=== PATIENT | female | born 1935 | race Caucasian/White ===

== ENCOUNTER 2016-07-02 17:15 | Emergency (ER) | payer OTHER ==
[~2016-07-02] VITALS: Ht 157.5 cm; Wt 49.8 kg
[~2016-07-02 17:15] MED LIST: ASPI81TA28 PO; GLC500 PO; GLIP10TA10 PO; LEVO100T7 PO; SIMV40TA2 PO
[2016-07-02 17:28] VITALS: TEMP 36.8; Ht 157.5 cm; Wt 49.8 kg
[2016-07-02 18:45] LABS: URINE APPEARANCE CLOUDY (CLEAR); URINE BILIRUBIN NEG (NEG); URINE COLOR YELLOW; URINE EPITHELIAL CELL AUTO >30 /lpf (0-5); URINE NITRITE NEG (NEG); URINE SPECIFIC GRAVITY 1.016 (1.000-1.030); UROBILINOGEN NEG (NEG)
[2016-07-02 18:51] LABS: MANUAL MICROSCOPIC REQUIRED? NO; REVIEW REQ? NO
[2016-07-02] MEDS ORDERED: FLUCONAZOLE 100 MG TAB PO STA (19:05)
[2016-07-02] MEDS ORDERED: CEPHALEXIN MONOHYDRATE 250 MG CAP PO ONE (19:15)
[2016-07-02] MEDS ORDERED: CEPH500C PO (19:27)
[2016-07-02 19:51] VITALS: BP 146/70; PULSE 76; O2SAT 99
--- NOTE | 2016-07-03 01:06 | EMERGENCY ROOM VISIT NOTE ---
History Report prepared by Leiaibeloisa: Sadie Toney Under the Supervision of: Dr. Jorge Luis Miranda M.D. First contact with patient: 17:39 Chief Complaint: VAGINAL DISCHARGE Stated Complaint: FOUND LUMP IN VAGINAL AREA History of Present Illness The patient is a 80 year old female who presents to the Emergency Room with complaints of persistent vaginal discomfort over the past few days. The patient notes that she felt two small lumps in the vaginal area and has also had some burning with urination. Her granddaughter looked at the patient's vagina and saw a white splotchy areas surrounding her vagina and was able to see the two small lumps. They did not appear to be red. The patient has not been sexually active in 15 years. Denies fever, vomiting, abdominal pain, vaginal discharge, vaginal bleeding, or other complaints. She does not follow with a career orientation teacher. Source of History: patient, family Onset: a few days ago Position: other (vagina) Timing: other (persistent) Associated Symptoms: No abdominal pain, No fevers, No vomiting Note: Other symptoms: lumps and white splotchiness around vagina Review of Systems See HPI for pertinent positives & negatives. A total of 10 systems reviewed and were otherwise negative. Past Medical & Surgical Medical Problems: (1) Asthma (2) Cataract (3) Dermatophytosis (4) Diabetes mellitus type 2 (5) DM (diabetes mellitus) (6) Hyperlipemia (7) Hypothyroidism (8) Localized, primary osteoarthritis of the lower leg Family History Diabetes mellitus Diabetes mellitus Heart disease Hypertension Social History Smoking Status: Former Smoker Alcohol Use: none Marital Status: Housing Status: lives with significant other Occupation Status: retired Current/Historical Medications Scheduled Aspirin (Aspirin Ec), 81 MG PO DAILY Cephalexin Monohydrate (Keflex), 500 MG PO TID Glipizide (Glipizide), 10 MG PO BIDM Levothyroxine Sodium (Levothyroxine Sodium), 100 MCG PO DAILY Metformin HCl (Metformin HCl), 500 MG PO BIDM Simvastatin (Zocor), 40 MG PO HS Allergies Coded Allergies: Celecoxib (Verified Allergy, Intermediate, nausea, vomiting, rash, 07/02/16 ) Homatropine (Verified Allergy, Unknown, LOW BLOOD PRESSURE AMD SLOW HEART RATE, 07/02/16) Hydrocodone (Verified Allergy, Unknown, LOW BLOOD PRESSURE AMD SLOW HEART RATE, 07/02/16) Rofecoxib (Verified Allergy, Unknown, NAUSEA, VOMITING, RASH, 07/02/16) Physical Exam Vital Signs Date Time Temp Pulse Resp B/P Pulse Ox O2 Delivery O2 Flow Rate FiO2 07/02/16 19:51 76 20 146/70 99 07/02/16 17:28 36.8 93 18 149/69 97 Room Air Physical Exam Constitutional: Vital signs reviewed. Eyes: Pupils are equal round reactive to light. Conjunctiva are noninjected. ENT: Pharynx is clear without erythema or exudate. Mucous membranes are moist. Neck supple without meningeal signs. Respiratory: Clear to auscultation bilaterally. Breath sounds are equal bilaterally. Cardiovascular: Regular rate and rhythm. No rubs or gallops. GI: Soft, nondistended and nontender. Bowel sounds are present. : Speculum exam - edema to the vulva with slight erosion. No vesicles. No discharge. Unable to tolerate further exam secondary to pain. Musculoskeletal: No peripheral edema. Integumentary: No cyanosis. Neurological: The patient is awake and alert. No focal deficits. Psychiatric: Normal affect. Medical Decision & Procedures Laboratory Results Test 07/02/16 18:06 Urine Color YELLOW Urine Appearance CLOUDY (CLEAR) Urine pH 5.0 (4.5-7.5) Urine Specific [place] 1.016 (1.000-1.030) Urine Protein NEG (NEG) Urine Glucose (UA) 2+ (NEG) Urine Ketones NEG (NEG) Urine Occult Blood TRACE (NEG) Urine Nitrite NEG (NEG) Urine Bilirubin NEG (NEG) Urine Urobilinogen NEG (NEG) Urine Leukocyte Esterase LARGE (NEG) Urine WBC (Auto) >30 /hpf (0-5) Urine RBC (Auto) 0-4 /hpf (0-4) Urine Hyaline Casts (Auto) 10-30 /lpf (0-5) Urine Epithelial Cells (Auto) >30 /lpf (0-5) Urine Bacteria (Auto) 2+ (NEG) Laboratory results as reviewed by me. Medications Administered Medications (Trade) Dose Ordered Sig/Srinath Route Start Time Stop Time Status Last Admin Dose Admin Fluconazole (Diflucan Tab) 150 mg NOW STAT PO 07/02/16 19:05 07/02/16 19:08 DC 07/02/16 19:05 150 MG Cephalexin Monohydrate (Keflex Cap) 500 mg NOW ONCE PO 07/02/16 19:15 07/02/16 19:16 DC 07/02/16 19:15 500 MG ED Course 1739: The patient was evaluated in room A3. A complete history and physical exam was performed. 1852: I performed a speculum exam. See findings in physical exam. 1901: I discussed the case with Dr. De La Cruz, Gynecology. She recommended treating with Diflucan x2 and Monistat and Desitin cream. 1904: Ordered Diflucan tab 150 mg PO, Keflex Cap 500 mg PO. 1923: I talked to the patient and her about test results. They agreed with the plan. The patient will be discharged home. Medical Decision This is an 80-year-old female who presents with vaginal discharge. Differential diagnosis includes yeast infection, vaginitis, UTI. I did perform a limited focused review of portions of the patient's old chart on the electronic medical record. The patient has had no recent pertinent visits to this hospital. I did evaluate the patient as noted above. I did perform a pelvic exam as noted above. She has generalized edema and erythema to the vulva and introitus. There are no vesicles. She appears to have a vulvovaginitis. I was unable to perform a speculum exam warm and well exam due to discomfort. A genital culture was obtained. A urinalysis was also obtained. I did discuss the case with Dr. De La Cruz of gynecology who recommended treating patient with antifungals. I did treat the patient with Diflucan 150 mg orally. She will also use Monistat at home. She was also instructed to use Desitin cream as a barrier for comfort. She is also given a prescription for Keflex for a UTI. She was advised follow up with gynecology. Consults Time Called: 1899 Consulting Physician: Dr. De La Cruz, Gynecology Returned Call: 1901 I discussed the case with her. She recommended treating with Diflucan x2 and Monistat and Desitin cream. Impression Primary Impression: Vulvovaginitis Additional Impression: UTI (urinary tract infection) Scribe Attestation The scribe's documentation has been prepared under my direct and personally reviewed by me in its entirety. I confirm that the note above accurately reflects all work, treatment, procedures, and medical decision making performed by me. Departure Information Dispostion Home / Self-Care Prescriptions Cephalexin Monohydrate (Keflex) 500 Mg Cap 500 MG PO TID, #21 CAP Prov: Jorge Luis Miranda M.D. 07/02/16 Referrals Bree Rojas D.O. (PCP) Patient Instructions My [facility], UTI Additional Instructions You have been examined and treated today on an emergency basis only. This is not a substitute for, or an effort to provide, complete comprehensive medical care. It is impossible to recognize and treat all injuries or illnesses in a single emergency department visit. It is therefore important that you follow up closely with your physician or career orientation teacher in 2 days. Call as soon as possible for an appointment. Return for worsening symptoms or if you develop fever, vomiting, abdominal pain or any other concerning symptoms. In addition to the antifungal medication you were given today use [id number] antifungal cream. Problem Qualifiers
== END 2016-07-02 19:54 | disposition home or self-care (01) ==
LOC: C.EDB 17:17 → C.EDA 19:54
DX: N76.0 Acute vaginitis (principal); N39.0 Urinary tract infection, site not specified; J45.909 Unspecified asthma, uncomplicated; E11.9 Type 2 diabetes mellitus without complications; E78.5 Hyperlipidemia, unspecified; E03.9 Hypothyroidism, unspecified; Z87.891 Personal history of nicotine dependence

== ENCOUNTER 2016-09-22 11:43 | Emergency (ER) | payer OTHER ==
[~2016-09-22] VITALS: Ht 127 cm; Wt 49.3 kg
[~2016-09-22 11:43] MED LIST changes: +CEPH500C PO
[2016-09-22 11:45] VITALS: TEMP 36.6; Ht 127 cm; Wt 49.3 kg
[2016-09-22] MEDS ORDERED: CEFTRIAXONE SOD INJ 1 GM ADDVIAL IV STA (11:56)
[2016-09-22] MEDS ORDERED: FLUCONAZOLE 50 MG TAB PO ONE (12:00)
[2016-09-22] MEDS ORDERED: OPTIRAY 320 IV PRN (12:15)
[2016-09-22] MEDS ORDERED: [UNRECOGNIZED DRUG - CODE] TOP (12:20)
[2016-09-22 13:02] LABS: HEMATOCRIT 37.3 % (37-47); MEAN CELL VOLUME 87.8 fL (80-100); MEAN CORPUSCULAR HEMOGLOBIN 30.8 pg (25-34); MEAN CORPUSCULAR HGB CONC 35.1 g/dl (32-36); PLATELET COUNT 186 K/uL (130-400); RED BLOOD COUNT 4.25 M/uL (4.2-5.4); WHITE BLOOD COUNT 7.21 K/uL (4.8-10.8)
[2016-09-22 13:18] LABS: BUN/CREATININE RATIO 11.5 (10-20); CALCIUM 8.8 mg/dl (8.5-10.1); CREATININE 0.7 mg/dl (0.60-1.20)
[2016-09-22 13:20] LABS: BASO % 0.3 %; BASO ABS # 0.02 K/uL (0-0.2); COMPLETE YES; EOS % 5.3 %; IG% 0.1 %; LYMPH % 38.1 %; LYMPH ABS # 2.75 K/uL (1.2-3.4); MONO % 7.4 %; NEUT % 48.8 %
[2016-09-22 14:12] VITALS: BP 138/62; PULSE 72; O2SAT 95
--- NOTE | 2016-09-22 14:15 | DIAGNOSTIC IMAGING REPORT ---
CT pelvis PELVIS W/IV CONT ONLY (CT) CLINICAL HISTORY: Vaginal cellulitis infection TECHNIQUE: Transaxial acquisition. Multi axial reformatted images COMPARISON STUDY: None FINDINGS: Transaxial images confirm the bowel pattern to be nonobstructive. Uterus is not enlarged but shows evidence for myometrial calcification. There is no evidence for ovarian enlargement. There is no significant free fluid within pelvic cul-de-sac. Bladder is midline. There is moderate circumferential thickening of the vaginal canal. A well-defined drainable abscess or collection Is not appreciated. IMPRESSION: 1. Circumferential wall thickening and/or edematous change of the vaginal canal and associated full. 2. This is most consistent with that of a nonspecific cellulitis. 3. No evidence for abscess or collection. 4. With the patient's symptoms have resolved, direct visualization is recommended to exclude any possibility of an underlying neoplastic process. 5. Study is otherwise negative. Electronically signed by: Selvin Velez M.D. 09/22/2016 2:13 PM Dictated Date/Time: 09/22/2016 2:02 PM
--- NOTE | 2016-09-22 14:23 | EMERGENCY ROOM VISIT NOTE ---
History Report prepared by Kareem: Crow Horne Under the Supervision of: Dr. Tevin Brady M.D. First contact with patient: 11:54 Chief Complaint: INFECTION Stated Complaint: INFECTION DOWN BELOW History of Present Illness The patient is an 80 year old female who presents to the Emergency Room with complaints of a recurrent vaginal infection. The patient states that she was diagnosed with a yeast infection in late June. She finished her prescription and initially had resolution of the infection. She did not follow up with Obstetrics & Gynecology. She notes itchiness and burning with urination and vaginal pain for the last week. She also has a rash surrounding her vagina. The patient denies fevers, chills, or vomiting. She follows up with the [facility]. Records indicate that the patient was seen here in June. She had cultures that grew out Group B Strep. She was started on Diflucan and Keflex. Source of History: patient Onset: 4-5 weeks ago Position: other (vaginal) Quality: other (infection) Timing: other (recurrent) Associated Symptoms: + rash, + urinary symptoms (burning), No chills, No fevers, No vomiting Review of Systems See HPI for pertinent positives & negatives. A total of 10 systems reviewed and were otherwise negative. Past Medical & Surgical Medical Problems: (1) Asthma (2) Cataract (3) Dermatophytosis (4) Diabetes mellitus type 2 (5) DM (diabetes mellitus) (6) Hyperlipemia (7) Hypothyroidism (8) Localized, primary osteoarthritis of the lower leg Family History Diabetes mellitus Diabetes mellitus Heart disease Hypertension Social History Smoking Status: Former Smoker Alcohol Use: none Marital Status: Housing Status: lives with significant other Occupation Status: retired Current/Historical Medications Scheduled Aspirin (Aspirin Ec), 81 MG PO DAILY Benzocaine-Resorcinol Vaginal (Vagicaine 20-3 %), 1 APPLN TOP BID Cephalexin Monohydrate (Keflex), 500 MG PO QID Fluconazole (Diflucan), 150 MG PO DIRECTED Glipizide (Glipizide), 10 MG PO BIDM Levothyroxine Sodium (Levothyroxine Sodium), 100 MCG PO DAILY Metformin HCl (Metformin HCl), 500 MG PO BIDM Simvastatin (Zocor), 40 MG PO HS Allergies Coded Allergies: Celecoxib (Verified Allergy, Intermediate, nausea, vomiting, rash, 09/22/16 ) Homatropine (Verified Allergy, Unknown, LOW BLOOD PRESSURE AMD SLOW HEART RATE, 09/22/16) Hydrocodone (Verified Allergy, Unknown, LOW BLOOD PRESSURE AMD SLOW HEART RATE, 09/22/16) Rofecoxib (Verified Allergy, Unknown, NAUSEA, VOMITING, RASH, 09/22/16) Physical Exam Vital Signs Date Time Temp Pulse Resp B/P Pulse Ox O2 Delivery O2 Flow Rate FiO2 09/22/16 14:12 72 17 138/62 95 Room Air 09/22/16 11:45 36.6 88 18 135/70 99 Room Air Physical Exam GENERAL: Patient is in no acute distress. HEENT: No acute trauma, normocephalic atraumatic, mucous membranes moist, no nasal congestion, no scleral icterus. NECK: No stridor, no adenopathy, no meningismus, trachea is midline. LUNGS: Clear to auscultation bilaterally, no wheeze, no rhonchi, breath sounds equal. HEART: Without murmurs gallops or rubs, regular rate and rhythm. ABDOMEN: Soft, nontender, bowel sounds positive, no hernias, no peritonitis. EXTREMITIES: No cyanosis or edema, full range of motion of all the joints without pain or difficulty, no signs for acute trauma. NEUROLOGIC: Oriented x 3, no acute motor or sensory deficits, no focal weakness. SKIN: No rash, no jaundice, no diaphoresis. VAGINAL: Diffuse erythema of external genitalia and surrounding soft tissues, there is some erythema extending into creases of the groin, no obvious discharge externally, area is sore to touch. Speculum exam was not performed secondary to discomfort. Medical Decision & Procedures ER Provider Diagnostic Interpretation: CT results as stated below per my review and radiologist interpretation: CT pelvis PELVIS W/IV CONT ONLY (CT) CLINICAL HISTORY: Vaginal cellulitis infection TECHNIQUE: Transaxial acquisition. Multi axial reformatted images COMPARISON STUDY: None FINDINGS: Transaxial images confirm the bowel pattern to be nonobstructive. Uterus is not enlarged but shows evidence for myometrial calcification. There is no evidence for ovarian enlargement. There is no significant free fluid within pelvic cul-de-sac. Bladder is midline. There is moderate circumferential thickening of the vaginal canal. A well-defined drainable abscess or collection Is not appreciated. IMPRESSION: 1. Circumferential wall thickening and/or edematous change of the vaginal canal and associated full. 2. This is most consistent with that of a nonspecific cellulitis. 3. No evidence for abscess or collection. 4. With the patient's symptoms have resolved, direct visualization is recommended to exclude any possibility of an underlying neoplastic process. 5. Study is otherwise negative. Electronically signed by: Selvin Velez M.D. 09/22/2016 2:13 PM Dictated Date/Time: 09/22/2016 2:02 PM Laboratory Results 09/22/16 12:25 Red Blood Count 4.25, Mean Corpuscular Volume 87.8, Mean Corpuscular Hemoglobin 30.8, Mean Corpuscular Hemoglobin Concent 35.1, Mean Platelet Volume 10.0, Neutrophils (%) (Auto) 48.8, Lymphocytes (%) (Auto) 38.1, Monocytes (%) (Auto) 7.4, Eosinophils (%) (Auto) 5.3, Basophils (%) (Auto) 0.3, Neutrophils # (Auto) 3.52, Lymphocytes # (Auto) 2.75, Monocytes # (Auto) 0.53, Eosinophils # (Auto) 0.38, Basophils # (Auto) 0.02 09/22/16 12:25 Test 09/22/16 12:25 White Blood Count 7.21 K/uL (4.8-10.8) Red Blood Count 4.25 M/uL (4.2-5.4) Hemoglobin 13.1 g/dL (12.0-16.0) Hematocrit 37.3 % (37-47) Mean Corpuscular Volume 87.8 fL (80-100) Mean Corpuscular Hemoglobin 30.8 pg (25-34) Mean Corpuscular Hemoglobin Concent 35.1 g/dl (32-36) Platelet Count 186 K/uL (130-400) Mean Platelet Volume 10.0 fL (7.4-10.4) Neutrophils (%) (Auto) 48.8 % Lymphocytes (%) (Auto) 38.1 % Monocytes (%) (Auto) 7.4 % Eosinophils (%) (Auto) 5.3 % Basophils (%) (Auto) 0.3 % Neutrophils # (Auto) 3.52 K/uL (1.4-6.5) Lymphocytes # (Auto) 2.75 K/uL (1.2-3.4) Monocytes # (Auto) 0.53 K/uL (0.11-0.59) Eosinophils # (Auto) 0.38 K/uL (0-0.5) Basophils # (Auto) 0.02 K/uL (0-0.2) RDW Standard Deviation 41.9 fL (36.4-46.3) RDW Coefficient of Variation 13.1 % (11.5-14.5) Immature Granulocyte % (Auto) 0.1 % Immature Granulocyte # (Auto) 0.01 K/uL (0.00-0.02) Anion Gap 6.0 mmol/L (3-11) Est Creatinine Clear Calc Drug Dose 32.5 ml/min Estimated GFR () 93.5 Estimated GFR (Non- 80.7 BUN/Creatinine Ratio 11.5 (10-20) Calcium Level 8.8 mg/dl (8.5-10.1) Laboratory results reviewed by me. Medications Administered Medications (Trade) Dose Ordered Sig/Srinath Route Start Time Stop Time Status Last Admin Dose Admin Ceftriaxone Sodium (Rocephin Inj) 1 gm NOW STAT IV 09/22/16 11:56 09/22/16 12:16 DC 09/22/16 12:27 1 GM Fluconazole (Diflucan Tab) 150 mg NOW ONCE PO 09/22/16 12:00 09/22/16 12:16 DC 09/22/16 12:27 150 MG ED Course 1153: The patient was evaluated in room B12b. A complete history and physical exam was performed. 1156: Rocephin 1 gm IV. 1200: Diflucan 150 mg PO. 1427: Discussed the case with Dr. Gottlieb, Obstetrics & Gynecology. The patient should follow up. 1433: Reevaluated the patient. Discussed results and discharge instructions: She verbalized understanding and agreement. The patient is ready for discharge. Medical Decision Differential diagnosis includes vaginal / pelvic cellulitis or abscess, necrotizing fasciitis, UTI, vaginal yeast infection. There is no leukocytosis or concerning anemia. No significant electrolyte abnormality or kidney failure. Pelvis CT showed vaginal cellulitis, no necrotizing fasciitis, no abscess. Urine sample here was eventually discarded as it was lost and apparently had spilled in the tube system. The patient was having difficulty providing a repeat sample. The patient received IV ceftriaxone, she was given IV saline. She received oral Diflucan. The patient does not want to stay in the hospital. She's not toxic or febrile. Her vaginal culture from late June showed group B strep so I do think treatment with antibiotics is indicated. The patient is going to be on Keflex 4 times daily for 10 days. I will also prescribe every third day Diflucan dosing for 3 days. I did speak with the on-call COOLING ROOM ATTENDANT doctor. The patient will be followed in the office. The patient will return here for worsening symptoms. I did not do a speculum exam as the patient was too uncomfortable. A speculum exam was attempted with her last ER visit and was unsuccessful. Consults Time Called: 1420 Consulting Physician: Dr. Gottlieb, Obstetrics & Gynecology. Returned Call: [phone]: Discussed the case with Dr. Gottlieb, Obstetrics & Gynecology. The patient should follow up. Impression Primary Impression: Cellulitis Scribe Attestation The scribe's documentation has been prepared under my direction and personally reviewed by me in its entirety. I confirm that the note above accurately reflects all work, treatment, procedures, and medical decision making performed by me. Departure Information Dispostion Home / Self-Care Prescriptions Fluconazole (DIFLUCAN) 150 Mg Tab 150 MG PO DIRECTED, #3 TAB take 1 tab every 3 days--next dose in 3 days (you were given a dose today 09/22/16) Prov: Tevin Brady M.D. 09/22/16 Cephalexin Monohydrate (Keflex) 500 Mg Cap 500 MG PO QID, #40 CAP Prov: Tevin Brady M.D. 09/22/16 Referrals No Doctor, Assigned (PCP) Forms HOME CARE DOCUMENTATION FORM, IMPORTANT VISIT INFORMATION Patient Instructions My [facility] Additional Instructions diflucan 1 tab every 3 days for 3 more days use keflex 4x per day for 10 days call licensed mortgage loan officer and set an appt for later this week return for fever or worsening symptoms or if not improving Problem Qualifiers Primary Impression: Cellulitis
[2016-09-22] MEDS ORDERED: FLUC150T PO (14:41)
[2016-09-22] MEDS ORDERED: CEPH500C PO (14:41)
== END 2016-09-22 15:08 | disposition home or self-care (01) ==
LOC: C.EDB 11:44
DX: N76.2 Acute vulvitis (principal); J45.909 Unspecified asthma, uncomplicated; E11.9 Type 2 diabetes mellitus without complications; E78.5 Hyperlipidemia, unspecified; E03.9 Hypothyroidism, unspecified; Z83.3 Family history of diabetes mellitus; Z82.49 Family history of ischemic heart disease and other diseases of the circulatory system; Z87.891 Personal history of nicotine dependence; Z79.82 Long term (current) use of aspirin; Z79.899 Other long term (current) drug therapy

== ENCOUNTER → 2017-04-16 | Outpatient (CLI) | payer OTHER ==
[~2017-04-16] MED LIST changes: -CEPH500C PO; +[UNRECOGNIZED DRUG - CODE] TOP
== END | disposition home or self-care (01) ==
LOC: C.PATHSPEC 17:23
PROVIDERS: ATTEND Obstetrics & Gynecology
DX: N90.9 Noninflammatory disorder of vulva and perineum, unspecified (principal); R87.620 Atypical squamous cells of undetermined significance on cytologic smear of vagina (ASC-US)

== ENCOUNTER → 2017-05-05 | Outpatient (CLI) | payer OTHER ==
[2017-05-05 16:35] LABS: HEMATOCRIT 38.8 % (37-47); MEAN CELL VOLUME 90.9 fL (80-100); MEAN CORPUSCULAR HEMOGLOBIN 30.2 pg (25-34); MEAN CORPUSCULAR HGB CONC 33.2 g/dl (32-36); MEAN PLATELET VOLUME 10.1 fL (7.4-10.4); PLATELET COUNT 207 K/uL (130-400); RED BLOOD COUNT 4.27 M/uL (4.2-5.4); WHITE BLOOD COUNT 7.01 K/uL (4.8-10.8)
--- NOTE | 2017-05-05 16:47 | DIAGNOSTIC IMAGING REPORT ---
CHEST 2 VIEWS ROUTINE CLINICAL HISTORY: 81 years-old Female presenting with C51.9 Z01.818, preoperative assessment. TECHNIQUE: PA and lateral views of the chest were obtained. COMPARISON: 06/28/2015. FINDINGS: Atherosclerosis of aortic arch. Cardiac silhouette normal in size. Lungs and pleural spaces clear. Degenerative changes of the thoracic spine. Upper abdomen normal. IMPRESSION: 1. No acute cardiopulmonary disease. Electronically signed by: Jadiel Franco M.D. 05/05/2017 4:46 PM Dictated Date/Time: 05/05/2017 4:45 PM
[2017-05-05 16:56] LABS: ALT/SGPT 16 U/L (12-78); BLOOD UREA NITROGEN 11 mg/dl (7-18); CALCIUM 8.8 mg/dl (8.5-10.1); CARBON DIOXIDE 25 mmol/L (21-32); CHLORIDE 107 mmol/L (98-107); CREATININE 0.81 mg/dl (0.60-1.20); GLUCOSE 242 mg/dl (70-99); POTASSIUM 4.1 mmol/L (3.5-5.1); SODIUM 138 mmol/L (136-145)
[2017-05-05 17:01] LABS: ALB/GLOB RATIO 0.9 (0.9-2); ALKALINE PHOSPHATASE 52 U/L (45-117); AST/SGOT 11 U/L (15-37)
== END | disposition home or self-care (01) ==
LOC: C.RAD 15:32
PROVIDERS: ATTEND Obstetrics & Gynecology Gynecologic Oncology
DX: C51.9 Malignant neoplasm of vulva, unspecified (principal); Z01.818 Encounter for other preprocedural examination

== ENCOUNTER → 2017-08-24 | Outpatient (CLI) | payer OTHER ==
[2017-08-24 14:38] LABS: HEMATOCRIT 37.5 % (37-47); HEMOGLOBIN 12.6 g/dL (12.0-16.0); MEAN CELL VOLUME 87.6 fL (80-100); MEAN CORPUSCULAR HEMOGLOBIN 29.4 pg (25-34); MEAN CORPUSCULAR HGB CONC 33.6 g/dl (32-36); MEAN PLATELET VOLUME 9.9 fL (7.4-10.4); PLATELET COUNT 217 K/uL (130-400); RED CELL DISTRIBUTION WIDTH CV 13.1 % (11.5-14.5); RED CELL DISTRIBUTION WIDTH SD 41.9 fL (36.4-46.3); WHITE BLOOD COUNT 8.85 K/uL (4.8-10.8)
[2017-08-24 15:13] LABS: ALBUMIN 3.2 gm/dl (3.4-5.0); ALT/SGPT 17 U/L (12-78); BLOOD UREA NITROGEN 11 mg/dl (7-18); CARBON DIOXIDE 25 mmol/L (21-32); CREATININE 0.79 mg/dl (0.60-1.20); GLUCOSE 160 mg/dl (70-99); POTASSIUM 4.2 mmol/L (3.5-5.1); SODIUM 137 mmol/L (136-145)
[2017-08-24 15:16] LABS: ALKALINE PHOSPHATASE 59 U/L (45-117); AST/SGOT 13 U/L (15-37); TOTAL PROTEIN 7.2 gm/dl (6.4-8.2)
== END | disposition home or self-care (01) ==
LOC: C.LAB 13:49
PROVIDERS: ATTEND Obstetrics & Gynecology Gynecologic Oncology
DX: Z01.818 Encounter for other preprocedural examination (principal); N90.89 Other specified noninflammatory disorders of vulva and perineum

== ENCOUNTER 2019-10-07 17:26 | Inpatient (IN) ==
[2019-10-07] MEDS ORDERED: MoRPHine SULFATE 2 MG/ML CARP IV PRN ×2 (18:03→22:42)
[2019-10-07] MEDS ORDERED: ONDANSETRON INJ 2 MG/ML 2 ML VIAL IV STA (18:03)
--- NOTE | 2019-10-07 18:13 | XRay Report ---
XR chest 1V portable CLINICAL HISTORY: Chest Pain COMPARISON STUDY: Chest radiograph September 06, 2018. FINDINGS: Lung volumes are normal. Lungs are clear. There is no pneumothorax or pleural effusion. Car diac size is normal. Mediastinal contours are normal. There is no evidence for pulmonary edema. IMPRESSION: No acute cardiopulmonary findings. ACT 112: Negative or not required by law. Electronically signed by: Joseph Vogt M.D. 10/07/2019 6:12 PM
[2019-10-07 18:21] LABS: Basophils # (auto) 0.02 K/uL (0-0.2); Basophils % (auto) 0.3 %; Eosinophils # (auto) 0.02 K/uL (0-0.5); Eosinophils % (auto) 0.3 %; Hemoglobin 11.9 g/dL (12.0-16.0); Immature Granulocytes # (auto) 0.01 K/uL (0.00-0.02); Immature Granulocytes % (auto) 0.2 %; Lymphocytes # (auto) 2.02 K/uL (1.2-3.4); Lymphocytes % (auto) 34.8 %; Mean Corpuscular Hemoglobin 30.8 pg (25-34); Mean Corpuscular Volume 90.7 fL (80-100); Mean Platelet Volume 9.9 fL (7.4-10.4); Monocytes % (auto) 6.9 %; Neutrophils # (auto) 3.33 K/uL (1.4-6.5); Neutrophils % (auto) 57.5 %; Platelet Count 217 K/uL (130-400); RDW Coefficient of Variation 13.8 % (11.5-14.5); RDW Standard Deviation 45.5 fL (36.4-46.3); Red Blood Count 3.86 M/uL (4.2-5.4)
[2019-10-07 18:31] LABS: Partial Thromboplastin Ratio 0.8; Partial Thromboplastin Time 23.3 Seconds (21.0-31.0)
[2019-10-07 18:46] LABS: Alanine Aminotransferase 18 U/L (12-78); Albumin Level 3.3 gm/dl (3.4-5.0); Aspartate Aminotransferase 14 U/L (15-37); BUN Creatinine Ratio 14.5 (10-20); Blood Urea Nitrogen 11 mg/dl (7-18); Calcium 9.5 mg/dl (8.5-10.1); Carbon Dioxide 24 mmol/L (21-32); Chloride 107 mmol/L (98-107); Est GFR (African American) 80.3; Est GFR (Non-African American) 69.3; Glucose 177 mg/dl (70-99); Lipase 69 U/L (73-393); Sodium 139 mmol/L (136-145)
[2019-10-07 18:51] LABS: Albumin Globulin Ratio 0.8 (0.9-2); Alkaline Phosphatase 46 U/L (45-117); Bilirubin,Total 0.3 mg/dl (0.2-1); Globulin 4.1 gm/dl (2.5-4.0); Total Protein 7.4 gm/dl (6.4-8.2); Troponin I < 0.015 ng/ml (0-0.045)
--- NOTE | 2019-10-07 19:35 | CT Scan Report ---
CT OF THE ABDOMEN AND PELVIS WITHOUT CONTRAST CLINICAL HISTORY: Mid abdominal pain and vomiting. COMPARISON STUDY: CT of the abdomen and pelvis November 26, 2017. TECHNIQUE: Axial images of the abdomen and pelvis were obtained without IV contrast. Images were revi ewed in the axial, sagittal, and coronal planes. Automated exposure control was utilized for the arnulfo dy. A dose lowering technique was utilized adhering to the principles of ALARA. FINDINGS: Small right middle lobe nodules are unchanged and CT of November 26, 2017. These are benign. Ev aluation of the abdomen and pelvis is suboptimal on this unenhanced examination. The liver, spleen, a drenal glands are unremarkable. 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 There is no biliary or pancreatic ductal dilatation. Pancreatic glandular atrophy is again noted. There is no evidence for a bowel obstruction. Note is made of a stool-filled diverticul um of the third portion the duodenum. The appendix is not visualized. Caliber of small and large alanna l are normal. No abdominal or pelvic lymphadenopathy is present. The left inguinal lymph node shown o n CT of November 26, 2017 is no longer identified. There is pelvic and left groin infiltration. No suspic ious osseous lesions are present. There is no hydronephrosis. No urinary calculi are identified. IMPRESSION: 1. No acute process within the abdomen or pelvis although exam mildly compromised given the lack of I V contrast. No bowel obstruction. 2. Mild left groin and pelvic infiltration which likely reflects postradiation change. No abdominal o r pelvic lymphadenopathy. ACT 112: Negative or not required by law. Electronically signed by: Joseph Vogt M.D. 10/07/2019 7:33 PM
--- NOTE | 2019-10-07 21:01 | Emergency Department Note ---
Impression & Plan Substernal chest pain, Abdominal pain, acute, epigastric, Abnormal ECG ED Provider Note NAME: HUMZA SELF AGE: 83 SEX: F ARRIVES VIA: Walk-In INFORMANT: [Patient] ED PROVIDER(S): Deangelo Pollard MD CHIEF COMPLAINT: Chest pain and upper abdominal pain PLAN: Disposition: Admitted Condition: [Good] MEDICAL DECISION MAKING: The patient presented with 2 days of waxing and waning upper abdominal and substernal chest pain. Her ECG showed inferior T wave inversions and some subtle lateral ST depression. Her CBC was rather unremarkable. Chemistry panel was negative. Troponin negative. The patient's serum lactate was negative as well. Urinalysis did not show any clear evidence of infection. Chest x-ray did not reveal any acute process. Her CT scan of the abdomen pelvis was also nega tive for acute process. This was done without IV or oral contrast given her complaints of nausea and vomiting. The patient was treated with morphine and Zofran and was feeling better with this. Symptoms were much improved. Given the chest symptoms, abdominal symptoms, and abnormal ECG I did recommend further management in the hospital. The patient was initially reluctant to stay however she agreed. I did consult with the [facility] service. The patient was evaluated and admitted for further work-up. Triage Nursing notes reviewed and agree them. Vital Signs: reviewed and remarkable for [no significant abnormalities] Differential diagnosis: Cardiac ischemia, aortic dissection, pulmonary embolism, pneumothorax, pneumonia, pericarditis, myocarditis, esophageal rupture, GERD, cholecystitis, pancreatitis, musculoskeletal, as well as other pathologies. ER treatment provided: IV morphine IV Zofran Diagnostics interpreted by me: ECG: Rate: 86 Rhythm:Normal sinus [place]:Normal QRS:Normal ST segements:No elevation. Subtle lateral ST depression. Inferior T wave inversions. Other:No PACs or PVCs Cardiac Monitoring: Cardiac monitoring ordered by me: The patient was placed on continuous cardiac monitoring and observed. It revealed a normal sinus rhythm at 75 beats per minute without ectopy or evidence of dysrhythmia. Laboratory studies: [See below] an unremarkable CBC and chemistry panel. Troponin negative. LFTs and lipase negative. Imaging studies: Chest x-ray. Findings: A chest x-ray was performed and revealed no pneumothorax, effusion, infiltrate, pulmonary edema, free air under the diaphragm, or wide mediastinum. Impression: No acute disease. CT scan of the abdomen pelvis was performed. Negative for acute process. I refer you to the EMR for further details. Consultation(s): Dr. Randle of the [facility] service. HPI: The patient is a 83 year old female who presents to the Emergency Room with complaints of substernal chest pain and epigastric abdominal pain. This started 2 days ago and is waxing and waning. Nonradiating. The patient also notes the following associated symptoms, nausea and vomiting. The patient has found no relieving factors. Current pain is rated as 8/10. Pt denies LOC, headache, fevers, chills, diaphoresis, visual changes, neck pain, breathing difficulties, back pain, melena, hematochezia, urinary symptoms, numbness, weakness, lymphadenopathy, rash, or other complaints. ROS: See above HPI for pertinent positives & negatives. A total of [10] systems reviewed and were otherwise negative. PAST MEDICAL HISTORY:[See Below] asthma, UTI, ovarian cancer PAST SURGICAL HISTORY:[See Below] FAMILY HISTORY:[See Below] SOCIAL HISTORY:[See Below] HOME MEDICATIONS:[See Below] ALLERGIES:[See Below] VITALS:[See Below] PHYSICAL EXAMINATION: GENERAL: Awake, alert, very uncomfortable-appearing, in no distress HENT: Normocephalic, atraumatic. Oropharynx unremarkable. EYES: Normal conjunctiva. Sclera non-icteric. NECK: Inspection normal. Non-tender. Supple. No nuchal rigidity. FROM. No ma sses. RESPIRATORY: Clear to auscultation. No wheezes. No rales. Normal respiratory effort. CARDIAC: Normal rate. Normal rhythm. No murmurs. No rubs. Extremities warm and well perfused. Pulses equal. No JVD. GI: Soft, non-distended. Epigastric tenderness to palpation. No rebound or guarding. No masses. RECTAL: Deferred. MUSCULOSKELETAL: Atraumatic. Chest examination reveals no tenderness. The back is symmetrical on inspection without obvious abnormality. There is no CVA tenderness to palpation. No joint edema. LOWER EXTREMITIES: Calves are equal size bilaterally and non-tender. No edema. No discoloration. NEURO: Normal sensorium. No sensory or motor deficits noted. SKIN: No rash or jaundice noted. ED COURSE: [Critical Care:] [None] Deangelo Pollard MD Past Med/Surg History Social History Preferred Language: Peruvian Beliefs That Will Affect Care: None Feels Safe at Home: Yes Smoking Status: Former smoker Allergies Allergies Allergy/AdvReac Type Severity Reaction Status Date / Time celecoxib Allergy Intermediate nausea, Verified 10/07/19 19:55 vomiting, rash homatropine Allergy Unknown LOW BLOOD Verified 10/07/19 19:55 PRESSURE AMD SLOW HEART RATE hydrocodone Allergy Unknown LOW BLOOD Verified 10/07/19 19:55 PRESSURE AMD SLOW HEART RATE rofecoxib Allergy Unknown NAUSEA, Verified 10/07/19 19:55 VOMITING, RASH Home Meds Home Medications Medication Instructions Recorded Confirmed aspirin [Aspirin Low Dose] 81 mg PO QPM 06/25/18 10/07/19 glipizide 10 mg PO BID 06/25/18 10/07/19 levothyroxine 100 mcg PO QAM 06/25/18 10/07/19 metformin 500 mg PO BIDM 06/25/18 10/07/19 simvastatin 40 mg PO HS 06/25/18 10/07/19 acetaminophen [Tylenol Extra 500 mg PO HS 07/08/19 10/07/19 Strength] Results & Data (ED) Vital Signs Vital Signs - 24 hr 10/07/19 17:27 10/07/19 18:00 10/07/19 18:22 Temperature 36.4 C L Temperature Source Oral Pulse Rate 89 81 86 Pulse Rate from SpO2 Sensor 79 83 Respiratory Rate 19 15 16 Blood Pressure 181/71 H 145/59 H Blood Pressure Mean 107 111 Pulse Oximetry 99 99 98 Sepsis Recent Fever Within 48 Hours No Sepsis Action Taken by Nursing No Action Required 10/07/19 18:30 10/07/19 18:31 10/07/19 18:40 Temperature Temperature Source Pulse Rate 85 78 84 Pulse Rate from SpO2 Sensor 85 80 84 Respiratory Rate 19 21 20 Blood Pressure 140/65 Blood Pressure Mean 90 Pulse Oximetry 98 98 99 Sepsis Recent Fever Within 48 Hours Sepsis Action Taken by Nursing 10/07/19 18:50 10/07/19 19:00 10/07/19 19:14 Temperature Temperature Source Pulse Rate 78 81 88 Pulse Rate from SpO2 Sensor 78 78 Respiratory Rate 15 22 17 Blood Pressure 132/58 L Blood Pressure Mean 105 Pulse Oximetry 96 97 Sepsis Recent Fever Within 48 Hours Sepsis Action Taken by Nursing 10/07/19 19:30 10/07/19 19:31 10/07/19 20:00 Temperature Temperature Source Pulse Rate 74 84 71 Pulse Rate from SpO2 Sensor Respiratory Rate 20 18 21 Blood Pressure 146/87 H 132/67 Blood Pressure Mean 117 104 Pulse Oximetry Sepsis Recent Fever Within 48 Hours Sepsis Action Taken by Nursing 10/07/19 20:01 10/07/19 20:30 10/07/19 20:31 Temperature Temperature Source Pulse Rate 71 74 74 Pulse Rate from SpO2 Sensor Respiratory Rate 18 12 18 Blood Pressure 120/41 L Blood Pressure Mean 58 Pulse Oximetry Sepsis Recent Fever Within 48 Hours Sepsis Action Taken by Nursing Laboratory Data Result diagrams: 10/07/19 18:00 10/07/19 18:00 Lab Results 10/07/19 10/07/19 10/07/19 Range/Units 18:00 18:00 18:00 WBC 5.80 (4.8-10.8) K/uL RBC 3.86 L (4.2-5.4) M/uL Hgb 11.9 L (12.0-16.0) g/dL Hct 35.0 L (37-47) % MCV 90.7 (80-100) fL MCH 30.8 (25-34) pg MCHC 34.0 (32-36) g/dL RDW Std Deviation 45.5 (36.4-46.3) fL RDW Coeff of Darcie 13.8 (11.5-14.5) % Plt Count 217 (130-400) K/uL MPV 9.9 (7.4-10.4) fL Immature Gran % (Auto) 0.2 % Neut % (Auto) 57.5 % Lymph % (Auto) 34.8 % Burt % (Auto) 6.9 % Eos % (Auto) 0.3 % Baso % (Auto) 0.3 % Immature Gran # (Auto) 0.01 (0.00-0.02) K/uL Neut # (Auto) 3.33 (1.4-6.5) K/uL Lymph # (Auto) 2.02 (1.2-3.4) K/uL Burt # (Auto) 0.40 (0.11-0.59) K/uL Eos # (Auto) 0.02 (0-0.5) K/uL Baso # (Auto) 0.02 (0-0.2) K/uL PT 11.0 (9.0-12.0) Seconds INR 1.0 (0.9-1.1) APTT 23.3 (21.0-31.0) Seconds PTT Ratio 0.8 Sodium 139 (136-145) mmol/L Potassium 4.0 (3.5-5.1) mmol/L Chloride 107 (98-107) mmol/L Carbon Dioxide 24 (21-32) mmol/L Anion Gap 8.0 (3-11) BUN 11 (7-18) mg/dl Creatinine 0.78 (0.6-1.2) mg/dl Est Cr Clr Drug Dosing Not Reportable Est GFR ( Amer) 80.3 Est GFR (Non-Af Amer) 69.3 BUN/Creatinine Ratio 14.5 (10-20) Glucose 177 H (70-99) mg/dl Lactate (0.4-2.0) mmol/L Calcium 9.5 (8.5-10.1) mg/dl Total Bilirubin 0.3 (0.2-1) mg/dl AST 14 L (15-37) U/L ALT 18 (12-78) U/L Alkaline Phosphatase 46 (45-117) U/L Troponin I < 0.015 (0-0.045) ng/ml Total Protein 7.4 (6.4-8.2) gm/dl Albumin 3.3 L (3.4-5.0) gm/dl Globulin 4.1 H (2.5-4.0) gm/dl Albumin/Globulin Ratio 0.8 L (0.9-2) Lipase 69 L (73-393) U/L 10/07/19 Range/Units 20:08 WBC (4.8-10.8) K/uL RBC (4.2-5.4) M/uL Hgb (12.0-16.0) g/dL Hct (37-47) % MCV (80-100) fL MCH (25-34) pg MCHC (32-36) g/dL RDW Std Deviation (36.4-46.3) fL RDW Coeff of Darcie (11.5-14.5) % Plt Count (130-400) K/uL MPV (7.4-10.4) fL Immature Gran % (Auto) % Neut % (Auto) % Lymph % (Auto) % Burt % (Auto) % Eos % (Auto) % Baso % (Auto) % Immature Gran # (Auto) (0.00-0.02) K/uL Neut # (Auto) (1.4-6.5) K/uL Lymph # (Auto) (1.2-3.4) K/uL Burt # (Auto) (0.11-0.59) K/uL Eos # (Auto) (0-0.5) K/uL Baso # (Auto) (0-0.2) K/uL PT (9.0-12.0) Seconds INR (0.9-1.1) APTT (21.0-31.0) Seconds PTT Ratio Sodium (136-145) mmol/L Potassium (3.5-5.1) mmol/L Chloride (98-107) mmol/L Carbon Dioxide (21-32) mmol/L Anion Gap (3-11) BUN (7-18) mg/dl Creatinine (0.6-1.2) mg/dl Est Cr Clr Drug Dosing Est GFR ( Amer) Est GFR (Non-Af Amer) BUN/Creatinine Ratio (10-20) Glucose (70-99) mg/dl Lactate 1.3 (0.4-2.0) mmol/L Calcium (8.5-10.1) mg/dl Total Bilirubin (0.2-1) mg/dl AST (15-37) U/L ALT (12-78) U/L Alkaline Phosphatase (45-117) U/L Troponin I (0-0.045) ng/ml Total Protein (6.4-8.2) gm/dl Albumin (3.4-5.0) gm/dl Globulin (2.5-4.0) gm/dl Albumin/Globulin Ratio (0.9-2) Lipase (73-393) U/L Administered Medications Morphine Sulfate (Morphine Sulfate) 2 mg IV Q15M PRN PRN Reason: Pain Stop: 10/21/19 18:02 Last Admin: 10/07/19 18:33 Dose: 2 mg Documented by: [id number] Discontinued Medications Ondansetron HCl (Zofran) 4 mg IV NOW STA Stop: 10/07/19 18:04 Last Admin: 10/07/19 18:33 Dose: 4 mg Documented by: [id number] Discharge Plan Visit Data Chief Complaint: Chest Pain Stated Complaint: chest pains, stomach pains, cant vomit ED Provider: Deangelo Pollard Discharge Problem: Substernal chest pain, Abdominal pain, acute, epigastric, Abnormal ECG Forms Stand Alone Forms: [facility] Prescriptions Prescriptions: No Action metformin 500 mg tablet 500 mg PO BIDM RF: 0 glipizide 10 mg tablet 10 mg PO BID RF: 0 aspirin [Aspirin Low Dose] 81 mg Tablet,Delayed Release (Dr/Ec) 81 mg PO QPM RF: 0 simvastatin 40 mg tablet 40 mg PO HS RF: 0 levothyroxine 100 mcg tablet 100 mcg PO QAM RF: 0 acetaminophen [Tylenol Extra Strength] 500 mg Tablet 500 mg PO HS RF: 0
[2019-10-07] MEDS ORDERED: ACETAMINOPHEN 325 MG TAB PO PRN (22:42)
[2019-10-07] MEDS ORDERED: NITROGLYCERIN SL 0.4 MG/TAB TAB SL PRN (22:42)
[2019-10-07] MEDS ORDERED: ONDANSETRON INJ 2 MG/ML 2 ML VIAL IV PRN (22:42)
[2019-10-07] MEDS ORDERED: SODIUM CHLORIDE 0.9% 1000ML 1,000 ML IV SCH (22:42)
[2019-10-07] MEDS ORDERED: DEXTROSE 50% 50 ML SYRINGE IV PRN (23:00)
[2019-10-07] MEDS ORDERED: GLUCOSE 10 TABS/TUBE PO PRN (23:00)
[2019-10-07] MEDS ORDERED: GLUCOSE 40% GEL 15 GM TUBE PO PRN (23:00)
[2019-10-07] MEDS ORDERED: GLUCAGON FOR INJ 1 MG VIAL SQ PRN (23:00)
[2019-10-07] MEDS ORDERED: CARBOHYDRATES FOR HYPOGLYCEMIA PO PRN (23:00)
[2019-10-07] MEDS: FAMOTIDINE 20 MG in SYRINGE 3 ML IV SCH (23:46)
--- NOTE | 2019-10-07 23:49 | History and Physical Report ---
DATE OF ADMISSION: 10/07/2019 CHIEF COMPLAINT: Chest pain and abdominal pain. HISTORY OF PRESENT ILLNESS: This is an 83-year-old female with past medical history significant for type 2 diabetes, hypothyroidism, hyperlipidemia, diabetic peripheral neuropathy, who lives with her and son, presents with chest pain and upper abdomen pain. The patient says she is having the symptoms for last 2 days, pressure-like feeling, also has some nausea. No shortness of breath, no cough, no fever, no chills. Appetite is okay. Feeling weak and tired, she wants to sleep all the time. Because of the ongoing symptoms, she came to the ER. Currently resting comfortably and hemodynamically stable. She says she ambulates okay. Appetite is okay. No diarrhea or constipation. Normal bladder movements. No swelling in the legs. No rash. No headache, no blurred visions, no earache, no runny nose, no sore throat, no difficulty swallowing. ALLERGIES: BLACKWOOD INHIBITORS, HYCODAN. PAST MEDICAL HISTORY: As mentioned above. PAST SURGICAL HISTORY: Left heart catheterization, repair of inguinal hernia. MEDICATIONS: The patient is on glipizide 10 mg p.o. b.i.d., metformin 500 mg p.o. b.i.d., simvastatin 40 mg p.o. at bedtime, levothyroxine 100 mcg p.o. daily, Tylenol with Codeine daily p.r.n., albuterol nebulization every 4 hours p.r.n., MiraLax p.r.n., aspirin 81 mg p.o. daily. FAMILY HISTORY: Significant for sister had breast cancer, mother has diabetes, father has diabetes. SOCIAL HISTORY: . No smoking, no alcohol, no drug use. REVIEW OF SYSTEMS: As per HPI. Rest of review of systems negative. PHYSICAL EXAMINATION: GENERAL: The patient is old and frail, not in acute distress. VITAL SIGNS: Temperature 36.4, pulse 74, respiratory rate 18, blood pressure 120/41, oxygen 97%. HEENT: No pallor, no icterus. NECK: No JVD, no neck masses. Supple. CARDIOVASCULAR: S1, S2 heard, regular rate and rhythm, no murmur, no gallop. RESPIRATORY SYSTEM: Normal AP diameter. No accessory muscle use. No wheezing, no crackles. ABDOMEN: Soft, bowel sounds present, nontender. No distention. CENTRAL NERVOUS SYSTEM: Cranial nerves II-XII grossly intact. Nonfocal. EXTREMITIES: No edema, no erythema. LABORATORY DATA: WBC 5.8, hemoglobin 11.9, hematocrit 35, platelets 217, PT 11, INR 1, APTT 23.3. Sodium 139, potassium 4, chloride 107, bicarbonate 24, BUN 11, creatinine 0.7, serum glucose 177. Lactate 1.3, calcium 9.5, total bilirubin 0.3, AST 14, ALT 18, alkaline phosphatase 46. Troponin I less than 0.015. Lipase 69. IMAGING DATA: Chest x-ray, no acute cardiopulmonary findings. CT of abdomen and pelvis, no acute process within the abdomen or pelvis, no bowel obstruction. Mild left groin and pelvic infiltration, which likely reflects post-radiation change. No abdominal or pelvic lymphadenopathy. EKG: Normal sinus rhythm with sinus arrhythmia. ST depression in the lateral leads. No old EKG to compare. ASSESSMENT AND PLAN: This is an 83-year-old female who presents with lower chest pain and abdominal pain. 1. Chest pain present for last 2 days. Initial workup was negative. Rule out acute coronary syndrome. Risk factor of diabetes, hyperlipidemia, and age. Will continue home aspirin. Serial cardiac enzymes, echocardiogram, n.p.o. after midnight and consult cardiology in a.m. for further recommendations. Follow echocardiogram. 2. Abdominal pain. CT of the abdomen and pelvis unremarkable except for mild left groin and pelvic infiltration.If no improvement consult GI. Will be placed on IV Pepcid b.i.d. for now. 3. Diabetes. Hold home glipizide and metformin. Placed on Lantus 5 units daily and insulin sliding scale. Currently, patient is n.p.o. after midnight. 4. Hypothyroidism, continue Synthroid. 5. Hyperlipidemia. Continue statin. Follow fasting lipid profile. 6. Deep vein thrombosis prophylaxis, sequential compression devices. 7. Disposition: Admit to med/surg tele. Level 1 full code. PT and OT prior to discharge. Social service to help with discharge planning. [facility]
[2019-10-08 05:32] LABS: Basophils # (auto) 0.03 K/uL (0-0.2); Basophils % (auto) 0.6 %; Eosinophils # (auto) 0.04 K/uL (0-0.5); Eosinophils % (auto) 0.8 %; Hematocrit (blood only) 33.6 % (37-47); Hemoglobin 11.2 g/dL (12.0-16.0); Immature Granulocytes # (auto) 0.01 K/uL (0.00-0.02); Immature Granulocytes % (auto) 0.2 %; Lymphocytes # (auto) 2.17 K/uL (1.2-3.4); Lymphocytes % (auto) 45.2 %; Mean Corpuscular Hemoglobin 30.1 pg (25-34); Mean Corpuscular Hgb Conc 33.3 g/dL (32-36); Mean Corpuscular Volume 90.3 fL (80-100); Mean Platelet Volume 9.5 fL (7.4-10.4); Monocytes # (auto) 0.51 K/uL (0.11-0.59); Monocytes % (auto) 10.6 %; Neutrophils # (auto) 2.04 K/uL (1.4-6.5); Neutrophils % (auto) 42.6 %; Platelet Count 190 K/uL (130-400); RDW Coefficient of Variation 13.6 % (11.5-14.5); RDW Standard Deviation 45.5 fL (36.4-46.3); Red Blood Count 3.72 M/uL (4.2-5.4)
[2019-10-08 05:49] LABS: Blood Urea Nitrogen 9 mg/dl (7-18); Calcium 8.9 mg/dl (8.5-10.1); Carbon Dioxide 26 mmol/L (21-32); Chloride 110 mmol/L (98-107); Est GFR (African American) 93.4; Est GFR (Non-African American) 80.6; Glucose 104 mg/dl (70-99); Magnesium 1.8 mg/dl (1.8-2.4); Potassium 4.3 mmol/L (3.5-5.1); Sodium 142 mmol/L (136-145)
[2019-10-08 05:54] LABS: Chol HDL Ratio 2; Cholesterol 151 mg/dl (0-200); HDL Cholesterol 73 mg/dl; LDL Cholesterol Calculated 64 mg/dl; Triglycerides 71 mg/dl (0-150); Troponin I < 0.015 ng/ml (0-0.045); VLDL Cholesterol 14 mg/dl
[2019-10-08] MEDS ORDERED: LEVOTHYROXINE SODIUM 100 MCG TABLET PO SCH (06:30)
[2019-10-08 07:16] LABS: Estimated Average Glucose 160 mg/dl; Hemoglobin A1C 7.2 % (4.5-5.6)
--- NOTE | 2019-10-08 07:53 | Electrocardiogram Report ---
Test Reason : Blood Pressure : / mmHG Vent. Rate : 086 BPM Atrial Rate : 086 BPM P-R Int : 122 ms QRS Dur : 076 ms QT Int : 384 ms P-R-T Axes : 092 065 -74 degrees QTc Int : 459 ms Normal sinus rhythm with sinus arrhythmia Abnormal ECG When compared with ECG of 29-NOV-2017 18:25, ST now depressed in Lateral leads Confirmed by Mike Herrera ([id number]) on 10/08/2019 7:53:31 AM Referred By: REFERRED SELF Confirmed By:Mike Herrera
[2019-10-08] MEDS: FAMOTIDINE 20 MG in SYRINGE 3 ML IV SCH (08:26)
[2019-10-08] MEDS ORDERED: INSULIN GLARGINE SOLOSTAR 100 UNITS/ML 3 ML PEN SC SCH (09:00)
[2019-10-08] MEDS: INSULIN ASPART 100 UNITS/ML 3 ML PEN SC SCH ×2 (09:25→11:43)
--- NOTE | 2019-10-08 09:33 | Hospitalist Progress Note ---
Date of Service October 08, 2019 Assessment & Plan (1) Substernal chest pain: Admitted with substernal chest pain for the 2 days prior to admission Has EKG changes consistent with lateral ischemia Serial troponins have been negative Echo showed: Normal with borderline concentric LV hypertrophy, EF is 60 to 65% with normal wall motion, mild MR, mild to moderate TR and RV systolic pressure is mildly elevated at 30 to 40 mmHg. Awaiting cardiology evaluation Patient remains free of symptoms as of this morning (2) Abnormal ECG: Lateral ischemia evidence by team worsening lateral leads (3) Abdominal pain, acute, epigastric: CT of the abdomen and pelvis remain unremarkable and no mention about ovaries Has history of ovarian cancer No more abdominal pain (4) Hyperlipemia: Continue current medications DVT prophylaxis SCDs Possible discharge today after cardiology evaluation if not we will put her on pharmacologic DVT prophylaxis Admission and Anticipated Discharge Date Admission Date: October 07, 2019 Subjective 10/08/2019 Patient was seen and examined in medical telemetry unit She is an 83-year-old female with multiple comorbid conditions including diabetes, hypothyroidism, hyperlipidemia and diabetic complications was admitted yesterday with chest pain/upper abdominal pain Denies any chest pain and no abdominal pain this morning No nausea and or vomiting and no palpitation or shortness of breath Review of Systems Review of Systems: All systems reviewed and are unremarkable except as noted below Cardiovascular: no chest pain, no chest pain at rest and no palpitations Gastrointestinal: no abdominal pain Physical Exam Physical Exam: Lying in bed comfortably Constitutional: + thin; no acute distress and not ill appearing Eyes: PERRL, conjunctivae normal, anicteric sclerae ENMT: external ear and nose normal, oropharynx normal Neck: trachea midline, no thyromegaly Respiratory: normal respiratory effort; no respiratory distress Auscultation: lungs clear to auscultation bilaterally Cardiovascular: Rate/Rhythm: regular rate and regular rhythm Heart Sounds: no murmur Gastrointestinal (Abdomen): Inspection/Auscultation: normal bowel sounds; abdomen not distended Percussion/Palpation: abdomen soft; abdomen nontender Musculoskeletal: No acute arthritis involving any joints Neurologic: moves all extremities; no focal motor deficits Results & Data Results & Data ([facility]) Vital Signs (Past 12 Hours) Vital Signs Temp Pulse Pulse Resp BP BP BP 10/08/19 07:18 36.4 C L 66 78 16 133/70 10/08/19 03:43 36.4 C L 74 18 122/65 10/08/19 00:00 78 10/07/19 22:30 36.6 C 91 H 18 172/81 H 10/07/19 21:59 74 19 138/65 Pulse Ox 10/08/19 07:18 97 10/08/19 03:43 97 10/08/19 00:00 10/07/19 22:30 94 10/07/19 21:59 97 Laboratory Results Short CBC 10/07/19 10/08/19 Range/Units 18:00 05:21 WBC 5.80 4.80 (4.8-10.8) K/uL Hgb 11.9 L 11.2 L (12.0-16.0) g/dL Hct 35.0 L 33.6 L (37-47) % Plt Count 217 190 (130-400) K/uL BMP 10/07/19 10/08/19 18:00 05:21 Sodium 139 142 Potassium 4.0 4.3 Chloride 107 110 H Carbon Dioxide 24 26 BUN 11 9 Creatinine 0.78 0.66 Glucose 177 H 104 H Calcium 9.5 8.9 Cardiac Enzymes 10/07/19 10/07/19 10/08/19 Range/Units 18:00 22:46 05:21 Troponin I < 0.015 < 0.015 < 0.015 (0-0.045) ng/ml Liver Function 10/07/19 Range/Units 18:00 Total Bilirubin 0.3 (0.2-1) mg/dl AST 14 L (15-37) U/L ALT 18 (12-78) U/L Alkaline Phosphatase 46 (45-117) U/L Albumin 3.3 L (3.4-5.0) gm/dl Medications Administered Current Inpatient Medications Acetaminophen (Tylenol) 650 mg PO Q4H PRN PRN Reason: Pain or Fever Stop: 11/06/19 22:41 Acetaminophen (Tylenol) 500 mg PO HS ELSA Stop: 11/07/19 20:59 Aspirin (Ecotrin Ectab) 81 mg PO QPM ELSA Stop: 11/07/19 20:59 Dextrose (Dextrose 50%) 25 - 50 ml IV UD PRN; Protocol PRN Reason: Hypoglycemia Protocol Stop: 11/06/19 22:59 Glucagon (Glucagen) 1 mg SQ UD PRN; Protocol PRN Reason: Hypoglycemia Protocol Stop: 11/06/19 22:59 Glucose (Glucose 40%) 15 - 30 gm PO UD PRN; Protocol PRN Reason: Hypoglycemia Protocol Stop: 11/06/19 22:59 Glucose (Dex4 Glucose) 4 - 8 tabs PO UD PRN; Protocol PRN Reason: Hypoglycemia Protocol Stop: 11/06/19 22:59 Sodium Chloride (Nss 1000ml) 1,000 mls @ 75 mls/hr IV .[id number] ELSA Stop: 10/08/19 11:00 Last Admin: 10/07/19 23:45 Dose: 75 mls/hr Documented by: Famotidine 20 mg/ Syringe 5 mls @ 2.5 mls/min IV BID [facility] Stop: 11/06/19 22:41 Last Admin: 10/08/19 08:26 Dose: 2.5 mls/min Documented by: Insulin Aspart (Novolog Flexpen) 0 units SC ACHS ELSA Stop: 11/07/19 07:29 Insulin Glargine (Lantus Solostar Pen) 5 units SC DAILY ELSA Stop: 11/07/19 08:59 Levothyroxine Sodium (Synthroid) 100 mcg PO DAILYBB [facility] Stop: 11/07/19 06:29 Last Admin: 10/08/19 06:19 Dose: Not Given Documented by: Miscellaneous (Carbohydrates For Hypoglycemia) 15 - 30 gm PO UD PRN PRN Reason: Hypoglycemia Treatment Stop: 11/06/19 22:59 Morphine Sulfate (Morphine Sulfate) 2 mg IV Q4H PRN PRN Reason: Pain Stop: 10/21/19 22:41 Nitroglycerin (Nitrostat) 0.4 mg SL UD PRN PRN Reason: Chest Pain Stop: 11/06/19 22:41 Ondansetron HCl (Zofran) 4 mg IV Q6H PRN PRN Reason: Nausea Stop: 11/06/19 22:41 Simvastatin (Zocor) 40 mg PO HS [facility] Stop: 11/07/19 20:59
[2019-10-08 11:44] VITALS: BP 113/65; PULSE 77; TEMP 97.9; O2SAT 98
--- NOTE | 2019-10-08 12:32 | Cardiology Consultation ---
Date of Consultation October 08, 2019 Assessment & Plan (1) Abdominal pain, acute, epigastric: Patient is an 83-year-old female presented with 2-day history of generalized malaise, abdominal pain chest and back pain without inciting cause. EKGs revealed chronic ST abnormalities nonspecific and lateral leads unchanged from prior studies. Echocardiogram with preserved left good function and unchanged from prior studies. Cardiac enzymes negative for injury or infarct despite greater than 2 days history of symptoms. All symptoms appear resolved today with patient denying any complaints Findings suggest noncardiac source of complaints. 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 Patient presents this admission noting approximately 2-day history of generalized fatigue weakness as well as abdominal and chest pressure discomfort in atypical fashion. Symptoms were associated with nausea and emesis. Symptoms not exacerbated by action or movement. No fevers chills or productive cough. No melena medication dysuria hematuria. Blood pressures were patient has been well controlled. She is generally active about her home without specific limitations. No tachypalpitations syncope or near syncope. No change in weight orthopnea PND or peripheral edema Patient notes no overt inciting cause of current complaints and symptoms have resolved this morning. Overall feels well is been ambulatory in room and hospital without difficulty. No arrhythmias on telemetry Allergies Allergy/AdvReac Type Severity Reaction Status Date / Time celecoxib Allergy Intermediate nausea, Verified 10/07/19 19:55 vomiting, rash homatropine Allergy Unknown LOW BLOOD Verified 10/07/19 19:55 PRESSURE AMD SLOW HEART RATE hydrocodone Allergy Unknown LOW BLOOD Verified 10/07/19 19:55 PRESSURE AMD SLOW HEART RATE rofecoxib Allergy Unknown NAUSEA, Verified 10/07/19 19:55 VOMITING, RASH Home Medications Home Medications Medication Instructions Recorded Confirmed Type aspirin [Aspirin Low Dose] 81 mg PO QPM 06/25/18 10/07/19 History glipizide 10 mg PO BID 06/25/18 10/07/19 History levothyroxine 100 mcg PO QAM 06/25/18 10/07/19 History metformin 500 mg PO BIDM 06/25/18 10/07/19 History simvastatin 40 mg PO HS 06/25/18 10/07/19 History acetaminophen [Tylenol Extra 500 mg PO HS 07/08/19 10/07/19 History Strength] Patient History Medical History Acute bronchitis (Acute) Asthma (Chronic) Asthma Asthma exacerbation (Acute) Asthma exacerbation (Acute) Asthma exacerbation (Acute) Dehydration (Acute) Dehydration (Acute) Dermatophytosis (Chronic 08/15/11) DM (diabetes mellitus) (Chronic) Fever (Acute) Fever (Acute) Hyperlipemia (Chronic) Hypermagnesemia (Acute) Hypomagnesemia (Acute) Intractable headache (Acute) Left-sided thoracic back pain (Acute) Lightheadedness (Acute) Ovarian cancer Pneumonia (Acute) Right ankle pain (Acute) Right groin pain (Acute) Right leg pain (Acute) Stress fracture of fibula (Acute) UTI (urinary tract infection) (Acute) Varicosities of leg (Acute) Vulvovaginitis (Acute) Family History Other Family history non-contributory Social History Preferred Language: Georgian Communication Ability: Effective Steam Setter Required: No Beliefs That Will Affect Care: None marital status: Current Living Situation: Spouse Other Information That Helps Us Care for You: No Feels Safe at Home: Yes Safety Concerns: Feels Safe At This Time Smoking Status: Never smoker Hx Alcohol Use: No Hx Substance Use: No Review of Systems Review of Systems: All systems reviewed & are unremarkable except as noted in HPI & below Physical Exam Constitutional: WD/WN, vitals as above no acute distress Eyes: PERRL, conjunctivae normal, anicteric sclerae ENMT: external ear and nose normal, oropharynx normal Neck: trachea midline, no thyromegaly Respiratory: normal respiratory effort, lungs clear to auscultation Cardiovascular: Rate/Rhythm: regular rate and regular rhythm Heart Sounds: normal S1 and normal S2; no gallop and no murmur Palpation: normal PMI Vessels: normal carotid upstroke and radial pulses present; no JVD and no carotid bruit Extremities: no edema Gastrointestinal (Abdomen): normal bowel sounds, soft, nontender, no hepatosplenomegaly Musculoskeletal: no cyanosis or clubbing, extremities motor strength 5/5 Skin: no rashes, warm and dry Neurologic: PERRL, EOMI, accommodation nl, no face palsy, no dysarthria Psychiatric: A+Ox3, euthymic affect Results & Data ([facility]) Vital Signs (Past 12 Hours) Vital Signs Temp Pulse Pulse Resp BP BP Pulse Ox 10/08/19 11:43 36.6 C 77 16 113/65 98 10/08/19 07:18 36.4 C L 66 78 16 133/70 97 10/08/19 03:43 36.4 C L 74 18 122/65 97 Laboratory Results Laboratory Results - last 24 hr 10/07/19 10/07/19 10/07/19 18:00 18:00 18:00 WBC 5.80 RBC 3.86 L Hgb 11.9 L Hct 35.0 L MCV 90.7 MCH 30.8 MCHC 34.0 RDW Std Deviation 45.5 RDW Coeff of Darcie 13.8 Plt Count 217 MPV 9.9 Immature Gran % (Auto) 0.2 Neut % (Auto) 57.5 Lymph % (Auto) 34.8 Lipscomb % (Auto) 6.9 Eos % (Auto) 0.3 Baso % (Auto) 0.3 Immature Gran # (Auto) 0.01 Neut # (Auto) 3.33 Lymph # (Auto) 2.02 Lipscomb # (Auto) 0.40 Eos # (Auto) 0.02 Baso # (Auto) 0.02 PT 11.0 INR 1.0 APTT 23.3 PTT Ratio 0.8 Sodium 139 Potassium 4.0 Chloride 107 Carbon Dioxide 24 Anion Gap 8.0 BUN 11 Creatinine 0.78 Est Cr Clr Drug Dosing Not Reportable Est GFR ( Amer) 80.3 Est GFR (Non-Af Amer) 69.3 BUN/Creatinine Ratio 14.5 Glucose 177 H POC Glucose Estimat Average Glucose Hemoglobin A1c Lactate Calcium 9.5 Magnesium Total Bilirubin 0.3 AST 14 L ALT 18 Alkaline Phosphatase 46 Troponin I < 0.015 Total Protein 7.4 Albumin 3.3 L Globulin 4.1 H Albumin/Globulin Ratio 0.8 L Triglycerides Cholesterol LDL Cholesterol, Calc VLDL Cholesterol, Calc HDL Cholesterol Cholesterol/HDL Ratio Lipase 69 L 10/07/19 10/07/19 10/07/19 20:08 22:46 23:01 WBC RBC Hgb Hct MCV MCH MCHC RDW Std Deviation RDW Coeff of Darcie Plt Count MPV Immature Gran % (Auto) Neut % (Auto) Lymph % (Auto) Lipscomb % (Auto) Eos % (Auto) Baso % (Auto) Immature Gran # (Auto) Neut # (Auto) Lymph # (Auto) Lipscomb # (Auto) Eos # (Auto) Baso # (Auto) PT INR APTT PTT Ratio Sodium Potassium Chloride Carbon Dioxide Anion Gap BUN Creatinine Est Cr Clr Drug Dosing Est GFR ( Amer) Est GFR (Non-Af Amer) BUN/Creatinine Ratio Glucose POC Glucose 198 H Estimat Average Glucose Hemoglobin A1c Lactate 1.3 Calcium Magnesium Total Bilirubin AST ALT Alkaline Phosphatase Troponin I < 0.015 Total Protein Albumin Globulin Albumin/Globulin Ratio Triglycerides Cholesterol LDL Cholesterol, Calc VLDL Cholesterol, Calc HDL Cholesterol Cholesterol/HDL Ratio Lipase 10/08/19 10/08/19 10/08/19 05:21 05:21 05:21 WBC 4.80 RBC 3.72 L Hgb 11.2 L Hct 33.6 L MCV 90.3 MCH 30.1 MCHC 33.3 RDW Std Deviation 45.5 RDW Coeff of Darcie 13.6 Plt Count 190 MPV 9.5 Immature Gran % (Auto) 0.2 Neut % (Auto) 42.6 Lymph % (Auto) 45.2 Lipscomb % (Auto) 10.6 Eos % (Auto) 0.8 Baso % (Auto) 0.6 Immature Gran # (Auto) 0.01 Neut # (Auto) 2.04 Lymph # (Auto) 2.17 Lipscomb # (Auto) 0.51 Eos # (Auto) 0.04 Baso # (Auto) 0.03 PT INR APTT PTT Ratio Sodium 142 Potassium 4.3 Chloride 110 H Carbon Dioxide 26 Anion Gap 6.0 BUN 9 Creatinine 0.66 Est Cr Clr Drug Dosing Not Reportable Est GFR ( Amer) 93.4 Est GFR (Non-Af Amer) 80.6 BUN/Creatinine Ratio 14.0 Glucose 104 H POC Glucose Estimat Average Glucose 160 Hemoglobin A1c 7.2 H Lactate Calcium 8.9 Magnesium 1.8 Total Bilirubin AST ALT Alkaline Phosphatase Troponin I < 0.015 Total Protein Albumin Globulin Albumin/Globulin Ratio Triglycerides 71 Cholesterol 151 LDL Cholesterol, Calc 64 VLDL Cholesterol, Calc 14 HDL Cholesterol 73 Cholesterol/HDL Ratio 2 Lipase 10/08/19 10/08/19 10/08/19 07:30 10:42 11:27 WBC RBC Hgb Hct MCV MCH MCHC RDW Std Deviation RDW Coeff of Darcie Plt Count MPV Immature Gran % (Auto) Neut % (Auto) Lymph % (Auto) Lipscomb % (Auto) Eos % (Auto) Baso % (Auto) Immature Gran # (Auto) Neut # (Auto) Lymph # (Auto) Lipscomb # (Auto) Eos # (Auto) Baso # (Auto) PT INR APTT PTT Ratio Sodium Potassium Chloride Carbon Dioxide Anion Gap BUN Creatinine Est Cr Clr Drug Dosing Est GFR ( Amer) Est GFR (Non-Af Amer) BUN/Creatinine Ratio Glucose POC Glucose 92 119 H Estimat Average Glucose Hemoglobin A1c Lactate Calcium Magnesium Total Bilirubin AST ALT Alkaline Phosphatase Troponin I < 0.015 Total Protein Albumin Globulin Albumin/Globulin Ratio Triglycerides Cholesterol LDL Cholesterol, Calc VLDL Cholesterol, Calc HDL Cholesterol Cholesterol/HDL Ratio Lipase
--- NOTE | 2019-10-08 14:56 | Discharge Summary ---
Date of Service October 08, 2019 Admission HPI Per Admitting Provider DICTATED BY: Alo Randle MD DATE OF ADMISSION: 10/07/2019 CHIEF COMPLAINT: Chest pain and abdominal pain. HISTORY OF PRESENT ILLNESS: This is an 83-year-old female with past medical history significant for type 2 diabetes, hypothyroidism, hyperlipidemia, diabetic peripheral neuropathy, who lives with her and son, presents with chest pain and upper abdomen pain. The patient says she is having the symptoms for last 2 days, pressure-like feeling, also has some nausea. No shortness of breath, no cough, no fever, no chills. Appetite is okay. Feeling weak and tired, she wants to sleep all the time. Because of the ongoing symptoms, she came to the ER. Currently resting comfortably and hemodynamically stable. She says she ambulates okay. Appetite is okay. No diarrhea or constipation. Normal bladder movements. No swelling in the legs. No rash. No headache, no blurred visions, no earache, no runny nose, no sore throat, no difficulty swallowing. Admission Exam Per Admitting Provider GENERAL: The patient is old and frail, not in acute distress. VITAL SIGNS: Temperature 36.4, pulse 74, respiratory rate 18, blood pressure 120/41, oxygen 97%. HEENT: No pallor, no icterus. NECK: No JVD, no neck masses. Supple. CARDIOVASCULAR: S1, S2 heard, regular rate and rhythm, no murmur, no gallop. RESPIRATORY SYSTEM: Normal AP diameter. No accessory muscle use. No wheezing, no crackles. ABDOMEN: Soft, bowel sounds present, nontender. No distention. CENTRAL NERVOUS SYSTEM: Cranial nerves II-XII grossly intact. Nonfocal. EXTREMITIES: No edema, no erythema. Principal Diagnosis Substernal chest pain, no ACS, abdominal/epigastric pain-resolved Discharge Exam Constitutional + thin; no acute distress and not ill appearing Eyes PERRL, conjunctivae normal, anicteric sclerae ENMT external ear and nose normal, oropharynx normal Neck trachea midline, no thyromegaly Respiratory normal respiratory effort; no respiratory distress Auscultation: lungs clear to auscultation bilaterally Cardiovascular Rate/Rhythm: regular rate and regular rhythm Heart Sounds: no murmur Gastrointestinal (Abdomen) Inspection/Auscultation: normal bowel sounds; abdomen not distended Percussion/Palpation: abdomen soft; abdomen nontender Neurologic moves all extremities; no focal motor deficits Discharge Data Allergies Allergy/AdvReac Type Severity Reaction Status Date / Time celecoxib Allergy Intermediate nausea, Verified 10/07/19 19:55 vomiting, rash homatropine Allergy Unknown LOW BLOOD Verified 10/07/19 19:55 PRESSURE AMD SLOW HEART RATE hydrocodone Allergy Unknown LOW BLOOD Verified 10/07/19 19:55 PRESSURE AMD SLOW HEART RATE rofecoxib Allergy Unknown NAUSEA, Verified 10/07/19 19:55 VOMITING, RASH Consultations 10/07/19 20:03 ED Decision to Admit Stat 10/07/19 22:42 Consult Case Management - Discharge Planning Routine 10/08/19 08:00 Consult Cardiology Routine Ordered Studies 10/07/19 18:03 CT abd pelvis wo con Stat Hospital Course (1) Substernal chest pain: Admitted with substernal chest pain for the 2 days prior to admission Has EKG changes consistent with lateral ischemia Serial troponins have been negative Echo showed: Normal with borderline concentric LV hypertrophy, EF is 60 to 65% with normal wall motion, mild MR, mild to moderate TR and RV systolic pressure is mildly elevated at 30 to 40 mmHg. Awaiting cardiology evaluation Patient remains free of symptoms as of this morning (2) Abnormal ECG: Lateral ischemia evidence by team worsening lateral leads (3) Abdominal pain, acute, epigastric: CT of the abdomen and pelvis remain unremarkable and no mention about ovaries Has history of ovarian cancer No more abdominal pain (4) Hyperlipemia: Continue current medications DVT prophylaxis SCDs Possible discharge today after cardiology evaluation if not we will put her on pharmacologic DVT prophylaxis Total Time Total Time Spent Total Time Spent (In Minutes): 35 minutes Total Time Includes: Examination of the Patient, Discharge Planning, Medication Reconciliation and Communication With Other Providers Discharge Plan Discharge Items Patient Disposition: Home - Self-Care Reason For Visit: CHEST PAIN Discharge Diagnosis: Substernal chest pain, no ACS, abdominal/epigastric pain-resolved Condition on Discharge: Good Activity: Resume your previous activity Non-emergency contact: Primary Care Provider Call non-emergency contact if: you have any medication questions and your symptoms worsen Follow-up/Referrals: Bree Rojas DO [Primary Care Provider] - (Your service will call on Thursday with an appointment within 7 days) Diet: Heart Healthy Addtl Attending Provider Instructions: Please take precaution to avoid falls Pending Studies at Discharge: No Stand-Alone Forms: My [facility], Smoking Cessation Medications and DC Order Prescriptions: Continued metformin 500 mg tablet 500 mg PO BIDM RF: 0 glipizide 10 mg tablet 10 mg PO BID RF: 0 aspirin [Aspirin Low Dose] 81 mg Tablet,Delayed Release (Dr/Ec) 81 mg PO QPM RF: 0 simvastatin 40 mg tablet 40 mg PO HS RF: 0 levothyroxine 100 mcg tablet 100 mcg PO QAM RF: 0 acetaminophen [Tylenol Extra Strength] 500 mg Tablet 500 mg PO HS RF: 0 Discharge Orders: Discharge Order (Routine); Ordered 10/08/19 Ordered By: King Appiah Admission Data Admit Date/Time: 10/07/19 21:32 Attending Provider: King Appiah Admit Provider: Alo Randle Primary Care Provider: Bree Rojas Other Providers: Alo Randle ; Alex Nino ; Brent Robbins ; Sid Solano ; Jorge Luis Sharma ; Kareem Lema ; Selvin Desai ; Juana Hermosillo ; Brenda Thurman ; Deon Gould Other Interventions: Discharge Summary Assessment (RN) Last Done: 10/08/19 14:40
[2019-10-08] MEDS ORDERED: SIMVASTATIN 40 MG TAB PO SCH (21:00)
[2019-10-08] MEDS ORDERED: ACETAMINOPHEN 500 MG TAB PO SCH (21:00)
[2019-10-08] MEDS ORDERED: ASPIRIN 81 MG ECTAB PO SCH (21:00)
--- NOTE | 2019-10-09 08:55 | Electrocardiogram Report ---
Test Reason : Blood Pressure : / mmHG Vent. Rate : 074 BPM Atrial Rate : 074 BPM P-R Int : 136 ms QRS Dur : 080 ms QT Int : 376 ms P-R-T Axes : 050 066 -35 degrees QTc Int : 417 ms Normal sinus rhythm Nonspecific T wave abnormality Abnormal ECG When compared with ECG of 08-OCT-2019 06:53, (unconfirmed) No significant change was found Confirmed by Mike Herrera ([id number]) on 10/09/2019 8:54:57 AM Referred By: REFERRED SELF Confirmed By:Mike Herrera
== END 2019-10-08 15:28 | disposition home or self-care (01) | DRG 313 ==
LOC: ED 17:26 → 2N 21:32 → SUATTDRO 21:32 → 2N 21:59